=== PATIENT | male | born 1970 | race Caucasian/White ===

== ENCOUNTER → 2016-06-07 | Outpatient (CLI) | payer BC, OTHER ==
[~2016-06-07] MED LIST: ASPEC81 PO; MULT-506 PO; SIMV40TA2 PO; [UNRECOGNIZED DRUG - OTHER]
--- NOTE | 2016-06-07 11:36 | DIAGNOSTIC IMAGING REPORT ---
RIGHT FOOT MIN 3 VIEWS CLINICAL HISTORY: RIGHT LATERAL FOOT PAIN Right pain COMPARISON: None. DISCUSSION: The bones and joint spaces appear intact. There is no evidence of fracture, dislocation or bony disease. There is no evidence for soft tissue swelling. IMPRESSION: Negative study. Electronically signed by: Krishna Banda M.D. 06/07/2016 11:35 AM Dictated Date/Time: 06/07/2016 11:35 AM
== END | disposition home or self-care (01) ==
LOC: C.RDSM 11:21
PROVIDERS: ATTEND Family Medicine
DX: M79.671 Pain in right foot (principal)

== ENCOUNTER → 2016-07-24 | Outpatient (CLI) | payer BC ==
--- NOTE | 2016-07-24 08:37 | DIAGNOSTIC IMAGING REPORT ---
RIGHT FOOT MIN 3 VIEWS CLINICAL HISTORY: RIGHT FOOT PAIN Right pain COMPARISON: None. DISCUSSION: The bones and joint spaces appear intact. There is no evidence of fracture, dislocation or bony disease. There is no evidence for soft tissue swelling. IMPRESSION: Negative study. Electronically signed by: Krishna Banda M.D. 07/24/2016 8:36 AM Dictated Date/Time: 07/24/2016 8:26 AM
== END | disposition home or self-care (01) ==
LOC: C.RDSM 08:18
PROVIDERS: ATTEND Family Medicine
DX: M79.671 Pain in right foot (principal); M84.374A Stress fracture, right foot, initial encounter for fracture

== ENCOUNTER → 2016-07-27 | Outpatient (CLI) | payer BC ==
--- NOTE | 2016-07-27 19:53 | DIAGNOSTIC IMAGING REPORT ---
RIGHT FOOT MRI HISTORY: Right FOOT PAIN TECHNIQUE: Multiplanar multisequence MRI of the right foot was performed without the use of intravenous contrast. COMPARISON STUDY: Right foot 07/24/2016. FINDINGS: Mild dorsal/lateral subcutaneous edema at the midfoot. There is also mild marrow edema at the base of the fourth and fifth metatarsals. There is also mild soft tissue edema surrounding the base of the fourth metatarsal. No fractures identified. No dislocation. There is also partial tear of the mid peroneus longus tendon as it passes along the plantar surface of the cuboid bone. IMPRESSION: 1. No fractures within the right foot. 2. Mild marrow edema within the base of the fourth and fifth metatarsals. This may be due to stress related changes or bone contusion. 3. Partial tear at the mid to distal peroneus longus tendon. Electronically signed by: Miguelito Hagen M.D. 07/27/2016 7:51 PM Dictated Date/Time: 07/27/2016 7:45 PM
== END | disposition home or self-care (01) ==
LOC: C.MRI 17:38
PROVIDERS: ATTEND Family Medicine
DX: M84.374A Stress fracture, right foot, initial encounter for fracture (principal); X58.XXXA Exposure to other specified factors, initial encounter

== ENCOUNTER 2017-03-08 13:49 | Emergency (ER) | payer BC ==
[~2017-03-08] VITALS: Ht 188 cm; Wt 82.0 kg
[2017-03-08 13:50] VITALS: TEMP 36.3; Ht 188 cm; Wt 82.0 kg
[2017-03-08] MEDS ORDERED: LIDOCAINE 1% BUFFERED INJ 20 ML VIAL INFIL ONE (14:15)
[2017-03-08] MEDS ORDERED: ATOR-24 PO (14:27)
--- NOTE | 2017-03-08 14:58 | EMERGENCY ROOM VISIT NOTE ---
ED Visit Note First contact with patient: 14:04 CHIEF COMPLAINT: Left fifth toe laceration today HISTORY OF PRESENT ILLNESS: Patient is a 46-year-old white male who presents emergency department for evaluation of a laceration to the left fifth toe. He was cleaning up a broken mirror at home, when a piece of the mirror that had punctured through the garbage bag and accidentally struck him on the outside of the left foot, causing the laceration described below. The bleeding stopped shortly after the injury and there is no foreign body sensation but there is pain with weight bearing. REVIEW OF SYSTEMS: Review of systems as per HPI. All other systems reviewed were negative. At least 6 systems reviewed. PMH: Electronic medical records are reviewed and summarized as above/below. See Problem List. Tetanus is up-to-date. SOCIAL HISTORY: Patient lives at home with his family. Nonsmoker. PHYSICAL EXAM: Vital Signs: Reviewed Nurse's notes. There is a 1 cm long laceration on the lateral aspect of the left fifth toe. The edges are gaping apart. There is no foreign material in the wound and it looks clean. There is no active bleeding. No deep structures such as tendons or nerves are seen in the base of the wound. EMERGENCY DEPARTMENT COURSE: Using sterile technique, the wound was irrigated copiously with saline and then cleaned with Betadine. Using 1% lidocaine anesthesia, the laceration was repaired with 5-0 nylon sutures. Patient tolerated the procedure well. I do not suspect nerve or vascular injury. There is no foreign body. Medication reconciliation: I attest that I have personally reviewed the patient' s current medication list. Blood pressure screening : Patient was found to have normal blood pressure on screening and does not require follow-up. Problem List Medical Problems: (1) Benign Parxysmal Vertigo Status: Chronic (2) Dyslipidemia Status: Chronic Current/Historical Medications Scheduled Atorvastatin (Lipitor), 40 MG PO QAM Allergies Coded Allergies: ALLERGY2 (Verified Allergy, Unknown, 05/13/05) Vital Signs Date Time Temp Pulse Resp B/P (MAP) Pulse Ox O2 Delivery O2 Flow Rate FiO2 03/08/17 15:14 67 129/80 96 03/08/17 13:50 36.3 70 16 142/89 95 Room Air Departure Information Impression Primary Impression: Toe laceration Referrals Marsha Brar D.O. (PCP) Patient Instructions My [facility] Additional Instructions Keep wound clean and dry. Do not allow any crusting or dried blood to accumulate on sutures. Wound gently with mild soap and water daily. Use an antibiotic ointment for 3-4 days, then let wound dry. Suture removal in 12-14 days. Return sooner for any signs of infection (increasing redness, swelling, drainage). Ice and elevate for swelling and pain. Ibuprofen 600 mg and Tylenol 1000 mg every 6 hrs for pain.
[2017-03-08 15:14] VITALS: BP 129/80; PULSE 67; O2SAT 96
== END 2017-03-08 15:15 | disposition home or self-care (01) ==
LOC: C.EDB 13:49 → C.EDD 15:15
DX: S91.115A Laceration without foreign body of left lesser toe(s) without damage to nail, initial encounter (principal); W45.8XXA Other foreign body or object entering through skin, initial encounter; Y93.89 Activity, other specified; Y92.009 Unspecified place in unspecified non-institutional (private) residence as the place of occurrence of the external cause; E78.5 Hyperlipidemia, unspecified; H81.10 Benign paroxysmal vertigo, unspecified ear; Z79.899 Other long term (current) drug therapy